=== PATIENT | male | born 2000 | race Caucasian/White ===

== ENCOUNTER 2024-03-09 04:34 | Emergency (ER) | payer OTHER ==
[2024-03-09] MEDS ORDERED: fentaNYL 50 MCG/ML SDV ONE (04:40)
[2024-03-09] MEDS: fentaNYL 50 MCG/ML SDV IVPUSH ONE ×2 (04:44→05:06)
[2024-03-09] MEDS: Sodium Chloride 0.9% 10 ML Syringe FLUSH PRN (04:49)
[2024-03-09] MEDS: ceFAZolin 2 GM in Sodium Chloride 0.9% 50 ML IV ONE (04:49)
[2024-03-09] MEDS: Sodium Chloride 0.9% 2.5 ML Syringe FLUSH PRN (04:50)
[2024-03-09] MEDS: Diphtheria,Pertussis(Acell),Tetanus Vaccine 0.5 ML Syringe IM ONE (04:52)
[2024-03-09] MEDS ORDERED: Naloxone 0.4 MG/ML SDV IVPUSH PRN (04:56)
[2024-03-09] MEDS: HYDROmorphone 1 MG/ML Syringe IVPUSH ONE (05:01)
[2024-03-09] MEDS: Ondansetron 4 MG/2 ML SDV IVPUSH ONE (05:01)
[2024-03-09] MEDS: fentaNYL 100 MCG/2 ML SDV IVPUSH ONE (06:09)
== END 2024-03-09 06:36 ==
LOC: MW.ED 04:34
DX: S62.330B Displaced fracture of neck of second metacarpal bone, right hand, initial encounter for open fracture (principal); S62.332B Displaced fracture of neck of third metacarpal bone, right hand, initial encounter for open fracture; S62.610B Displaced fracture of proximal phalanx of right index finger, initial encounter for open fracture; S62.612B Displaced fracture of proximal phalanx of right middle finger, initial encounter for open fracture; Z23 Encounter for immunization; W23.1XXA Caught, crushed, jammed, or pinched between stationary objects, initial encounter; Y99.0 Civilian activity done for income or pay
CPT/HCPCS: 73100; 73120; 90471; 90715; 96365; 96375; 96376; 99284; J0690; J1170; J2405; J3010; J3490